=== PATIENT | male | born 1960 | race Caucasian/White ===

== ENCOUNTER 2017-03-03 14:27 | Inpatient (IN) | payer OTHER ==
[~2017-03-03] VITALS: Ht 180.3 cm; Wt 80.0 kg
--- NOTE | ~2017-03-03 | HC ---
[facility] [place] [address] CONSULTATION Name: DEBBIE MINOR Room #: 418-P ADM IN M.R.#: [id number] Admission: 03/03/17 Attend Phys: Lit Romo Discharge: Date of : 64 Report #: [id number] THIS REPORT FOR: //name// CC: [facility] physician/PCP Lit Romo REASON FOR CONSULTATION: I was asked to evaluate the patient concerning syncopal episode and neutropenia. HISTORY OF PRESENT ILLNESS: The patient is a 56-year-old with underlying HIV infection, who has been stable on 3-drug antiretroviral program for over 20 years. He presents after syncopal episode that occurred while he was at the on 03/03/2017. He just walked up a flight of stairs and there were about 6 patients into the lobby when he had syncopal episode where he fell into a wall and was off for several seconds. His partner witnessed the fall. There was no gross seizure activity. He did awaken within the seconds, although he was responsive and was able to verbalize. The patient could not tell me much of what has had other than he was aware of the events that took place. The medical personnel at the facility put him in a wheelchair to come down stairs, offered him some liquid to drink. At that time, the patient was reasonably stable and was transported by private vehicle to the Emergency Room where he was evaluated here and kept in the Med-Surge Unit. He was placed on telemetry and remained in sinus rhythm. Resting electrocardiogram was unremarkable other than mild left atrial enlargement and left axis deviation. He reports a similar episode that occurred about a year ago. He was out of work for about a month because this. He had residual weakness on his right side, but he could not characterize it very well. He was told that he had a TIA. He reports, however, that his MRI scan was negative and no other neurologic workup was undertaken, although he was not definitive about the evaluation. Since a year ago, he had been back to work. 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 He does note that intermittently he will have episodes of presyncope. They last seconds and then resolve one he rests. He does have underlying diabetes with peripheral neuropathy. He has glaucoma. States many years ago, he had treadmill cardiac test which was unremarkable. He had an extensive illness and workup. The patient could not tell me the exact results of back in 2003, 2004 in [facility]. PAST MEDICAL HISTORY: Appendectomy, hemorrhoidectomy, TIA with previous syncopal episodes, anxiety, depression, glaucoma, HIV, hepatitis B, CMV, retinitis, diabetes, peripheral neuropathy, IBS predominately with constipation. ALLERGIES: CHLOR-TRIMETON. MEDICATIONS: As noted on his DEC, which were reviewed. He is on Epzicom and Viracept. He also takes Neurontin and imipramine. [address] [address] CONSULTATION Name: DEBBIE MINOR Room #: 418-P ADM IN M.R.#: [id number] Admission: 03/03/17 Attend Phys: Lit Romo Discharge: Date of : 64 Report #: [id number] FAMILY HISTORY: He is adopted. SOCIAL HISTORY: Has a stable partner, works in [employer] for [employer]. Nonsmoker, no significant alcohol intake, no other reported STDs, tuberculosis. Travel only to [place] outside the [place]. Pet dogs. REVIEW OF SYSTEMS: No nausea, vomiting, diarrhea, dysuria or frequency, rash. He did report feeling malaise, mild arthralgias and myalgias for last 2 days. No documented fever. No pharyngitis symptoms, cough, headache, dysuria or frequency. PHYSICAL EXAMINATION: VITAL SIGNS: Afebrile and hemodynamically stable. GENERAL: He is alert and cooperative and pleasant, in no acute distress. SKIN: Unremarkable. LYMPH: Unremarkable. HEENT: Unremarkable. No adenopathy. NECK: Unremarkable. Carotid upstrokes normal. No bruits. Thyroid normal. LUNGS: Clear. HEART: Regular, without murmur. ABDOMEN: Soft, nontender, no hepatosplenomegaly or mass. GENITORECTAL: Not performed. EXTREMITIES: Unremarkable other than right calf atrophy. Sensation in his feet to touch were normal, pulses normal, stance normal. Romberg -1. Deep tendon reflexes diminished, -1 throughout. Strength otherwise normal other than -2 in toe raisers. LABORATORY STUDIES: Hemoglobin 10.9, platelet count 85,000, white count 1.8, 40% segs, 30% lymphs. 6.5, sodium 137, potassium 4.3, bicarbonate 28, creatinine 1.1. Liver function test normal, AST 42. Lactate 1.1. TSH 2. BNP 54. Chest x-ray clear. Blood culture is negative to date. CT head, mild atrophy. IMPRESSION: A 47-year-old, underlying diabetes, human immunodeficiency virus, now with syncopal episode, this is in junction with evidence of pancytopenia. The cause of his syncopal episode may well have been vagal in the setting of his neuropathy and some dehydration. Other consideration would be cardiac dysrythmia, autonomic neuropathy, cerebrovascular event, most likely seizure or tumor. Cause of his pancytopenia would include drugs side effect versus opportunistic infection versus human immunodeficiency virus, less likely lymphoproliferative disorder. RECOMMENDATION: Continue his home antiretroviral program, obtain viral studies for CMV, EVV, obtain outside records of his previous blood counts and his workup performed in [facility] where he underwent a bone marrow biopsy, check a CD4 [facility] [address] [place] [address] CONSULTATION Name: DEBBIE MINOR Room #: 418-P ADM IN M.R.#: [id number] Admission: 03/03/17 Attend Phys: Lit Romo Discharge: Date of : 64 Report #: [id number] count and Urology evaluate. Continue with telemetry and check echocardiogram. Would hold as Neurontin and imipramine at this time. <ELECTRONICALLY SIGNED> By: Dash Toure MD 03/05/17 0844 1447 0014 Dash Toure MD /nt
--- NOTE | ~2017-03-03 | S ---
[facility] [place] [address] SURGICAL PATH RPT PROCEDURE Name: DEBBIE MINOR Room #: 418-P ADM IN M.R.#: [id number] Admission: 03/03/17 Date of : 64 Discharge: Report #: [id number] Path Case #: [id number] PATHOLOGY REPORT COLLECTION DATE: 03/04/2017 RECEIVED DATE: 03/05/2017 SUBMITTING PHYS: Dr. Dash Toure OTHER PHYS: Dr. Lit Onofre SPECIMEN(S) RECEIVED: A.Peripheral smear * * * * * * * * * * * * FINAL DIAGNOSIS: Peripheral blood smear: - Mild pancytopenia. (see comment) COMMENT: Overall, the peripheral blood has mild pancytopenia including mild normocytic anemia, mild leukopenia, and mild to moderate thrombocytopenia. The etiology of the findings is unclear based entirely on slide review. Potential causes of pancytopenia include infections, drug reactions, and primary bone marrow disorders. No markedly atypical cells are identified on scanning. Correlation with clinical history and additional laboratory data is recommended. PATHOLOGIST: Blossom Wisdom M.D. REPORT ELECTRONICALLY SIGNED BY: Blossom Wisdom M.D. DATE/TIME: 03/05/2017 22:23 * * * * * * * * * * * * MICROSCOPIC DESCRIPTION: CBC Data (03/04/17): WBC 2,500 /uL, RBC 3.83, hemoglobin 11.7 g/dL, hematocrit 35.4%, MCV 95.2 fL, MCH 30.6 pg, MCHC 33.1 g/dL, RDW 13.4%. Platelet count 101,000 /uL. Automated white blood cell differential: segs 68.6%, lymphs 17.4%, monos 11.7%, eos 1.6%, and 0.7% basos. Peripheral Blood Smear: Cytomorphological examination of the Ugalde's stained peripheral blood smear confirms the provided data. Red blood cells show mild normocytic anemia with no significant anisopoikilocytosis. No schistocytes or microspherocytes are seen. No opportunistic organisms are identified on scanning. White blood cells are mildly decreased in number. They are predominantly segmented neutrophils and are without significant dyspoiesis or significant left shift. Lymphocytes are predominantly small, round, and mature appearing with [address] [address] SURGICAL PATH RPT PROCEDURE Name: DEBBIE MINOR Room #: 418-P ADM IN M.R.#: [id number] Admission: 03/03/17 Date of : 64 Discharge: Report #: [id number] Path Case #: [id number] condensed chromatin and scant cytoplasm with admixed large granular lymphocytes. On scanning, no markedly atypical lymphoid cells are seen. Monocytes are mature. Platelets are mildly decreased in number and mainly normal in morphology with rare larger platelets noted. CLINICAL HISTORY: 56 year-old man with pancytopenia. Morphologic review of the peripheral blood smear is requested by the patient's physician. INITIAL CPT CODE(S): A; [place] Professional services performed by [facility] at [facility] [address], [place] [address] Technical services performed by [facility] at [address] [place] [address], [address], [place] [address]. [facility] [address] [place] [address] PHONE: [phone] DIRECTOR: Fili Moses M.D. * * * END OF REPORT * * *
--- NOTE | ~2017-03-03 | 2DMMODE ---
[facility] [address] [place] [address] 2 D/M-MODE ECHOCARDIOGRAM Name: DEBBIE MINOR Room #: 418-P ADM IN M.R.#: [id number] Admission: 03/03/17 Attend Phys: Lit Alvarado Discharge: Date of : 64 Date of Service: 03/05/17 1034 Report #: [id number] THIS REPORT FOR: //name// APPROVED REPORT Study performed: 03/05/2017 08:49:45 EXAM: Comprehensive 2D, Doppler, and color-flow Echocardiogram Patient Location: Echo lab Room #: 418 Blood Pressure: 141/77 mmHg HR: 92 bpm Rhythm: NSR Other Information Study Quality: Adequate Technically limited study due to body habitus, lung artifact. Indications Syncope 2D Dimensions RVDd: 31.21 mm LVEF(%): 58.75 (>50%) IVSd: 9.42 (7-11mm) LVOT Diam: 21.74 (18-24mm) LVDd: 47.89 mm PWd: 8.88 (7-11mm) Ascending Ao: 36.31 (22-36mm) LVDs: 33.00 (25-40mm) Aortic Root: 31.84 mm Lindsey's LVEF: 58.75 % Volumes Left Atrial Volume (Systole) Single Plane 4CH: 37.64 mL Single Plane 2CH: 49.36 mL LA ESV Index: 25.00 mL/m2 Aortic Valve AoV Peak Jacob.: 1.90 m/s AO Peak Gr.: 14.48 mmHg LVOT Max P.95 mmHg LVOT Max V: 1.32 m/s BOBBY Vmax: 2.57 cm2 [facility] [address] [address] 2 D/M-MODE ECHOCARDIOGRAM Name: DEBBIE MINOR Room #: 418-P [facility].#: [id number] Admission: 03/03/17 Attend Phys: Lit Alvarado Discharge: Date of : 64 Date of Service: 03/05/17 1034 Report #: [id number] Mitral Valve E/A Ratio: 0.7 MV Decel. Time: 294.47 ms MV E Max Jacob.: 0.84 m/s MV A Jacob.: 1.15 m/s MV PHT: 85.39 ms IVRT: 62.28 ms Pulmonary Valve PV Peak Jacob.: 0.96 m/s PV Peak Gr.: 3.69 mmHg Tricuspid Valve RAP Estimate: 5.00 mmHg Left Ventricle The left ventricle is normal size. There is normal LV segmental wall motion. There is normal left ventricular wall thickness. Left ventricular systolic function is normal. LVEF is 60%. Grade I - abnormal relaxation pattern. Right Ventricle The right ventricle is normal size. The right ventricular systolic function is normal. Atria The left atrium size is normal. The right atrium size is normal. Aortic Valve Aortic valve is not well visualized but is noted to be calcified. No aortic regurgitation is present. There is no aortic valvular stenosis. Mitral Valve The mitral valve is normal in structure. There is no mitral valve regurgitation noted. No evidence of mitral valve stenosis. Tricuspid Valve The tricuspid valve is normal in structure. There is no tricuspid valve regurgitation noted. Pulmonic Valve Pulmonic valve is not well visualized. Great Vessels The aortic root is normal in size. The ascending aorta is normal in [facility] [address] [place] [address] 2 D/M-MODE ECHOCARDIOGRAM Name: DEBBIE MINOR Room #: 418-P ADM IN M.R.#: [id number] Admission: 03/03/17 Attend Phys: Lit Alvarado Discharge: Date of : 64 Date of Service: 03/05/17 1034 Report #: [id number] size. IVC is normal in size and collapses >50% with inspiration. Pericardium There is no pericardial effusion. <Conclusion> The left ventricle is normal size. LVEF is 60%. Aortic valve is not well visualized but is noted to be calcified. The mitral valve is normal in structure. The tricuspid valve is normal in structure. Pulmonic valve is not well visualized. <ELECTRONICALLY SIGNED> By: Hi Reyes MD 03/05/17 1034 1034 1034 Hi Reyes MD /INF
--- NOTE | ~2017-03-03 | EKG ---
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 : 1960 Requested By: Jeremiah Magallon Order Number: [id number] MD: Ezekiel Hernandez Measurements Intervals [place] Rate: 79 P: 49 [place]: 155 QRS: -18 QRSD: 105 T: 19 QT: 398 QTc: 457 Interpretive Statements Sinus rhythm Probable left atrial enlargement Borderline left axis deviation Compared to ECG 11/19/2014 08:27:33 No significant changes Electronically Signed On 03-03-2017 22:43:09 CDT by Ezekiel Hernandez [email or web address] <ELECTRONICALLY SIGNED> By: Ezekiel Hernandez MD 03/03/17 2243 1440 1440 Ezekiel Hernandez MD /BEATA
--- NOTE | ~2017-03-03 | HC ---
[facility] [place] [place] [address] CONSULTATION Name: DEBBIE MINOR Room #: 418-P ADM IN M.R.#: [id number] Admission: 03/03/17 Attend Phys: Lit Romo Discharge: Date of : 64 Report #: [id number] THIS REPORT FOR: //name// CC: [place] physician/PCP Lit Romo DATE OF SERVICE: 03/04/2017 HISTORY OF PRESENT ILLNESS: The patient is a 56-year-old male who while he was at the [facility] yesterday had a syncopal episode. At the same time, the patient's blood sugar was 60. The patient was instructed to come to the Emergency Room and was admitted for further evaluation. The medic at the event reported that the patient's blood pressure was somewhere in the 90s/60s. The patient was able to stand afterwards and converse with the medics. Since that time, the patient has had headache and tingling of the extremities. The patient does admit to having a peripheral neuropathy secondary to diabetes. He also relates a history of lightheadedness for approximately the past year and feels lightheaded from time to time, sometimes he feels lightheaded when he stands suddenly. The patient has even been to the [facility] just to have all of his medications reviewed. He has had diabetes for approximately 20 years. He is also HIV positive and has diabetic neuropathy. The patient also told me that his legs become restless before he goes to bed at night and that makes it hard for him to fall asleep. PAST MEDICAL HISTORY: Irritable bowel syndrome, HIV, depression, non-insulin dependent diabetes, glaucoma, hepatitis B diabetic neuropathy. PAST SURGICAL HISTORY: Left foot surgery, tonsillectomy. MEDICATIONS: At home, Actoplus Met 15/850 one tablet t.i.d., acidophilus daily, vitamin C 1000 mg daily, B12 3000 mcg daily, imipramine 25 mg t.i.d., Neurontin 600 mg t.i.d., fish oil or flaxseed oil 1000 mg daily, CoQ10 100 mg daily, bupropion XL 300 mg daily, cinnamon/alpha lipoic acid daily, fish oil 1200 mg daily, multivitamin daily, Viracept 1250 mg b.i.d., Epzicom one tablet daily, Xalatan eye drops at bedtime, glucosamine in the morning, melatonin 3 mg at bedtime. ALLERGIES: . PHYSICAL EXAMINATION: VITAL SIGNS: Blood pressure 148/100, pulse rate 113, respiratory rate 18, bedside pulse oximetry 95% on room air. NEUROLOGIC: Cranial nerves 2-12 are grossly intact. Motor exam demonstrates symmetrical strength in all 4 extremities. There is no evidence of dysmetria. [address] [address] CONSULTATION Name: DEBBIE MINOR Room #: 418-P [facility] IN M.R.#: [id number] Admission: 03/03/17 Attend Phys: Lit Romo Discharge: Date of : 64 Report #: [id number] Gait was not tested. LABORATORY DATA: White blood cell count 1.8, hemoglobin 10.9, hematocrit 32.6, MCV 92.6, platelet count 85,000. Urinalysis negative. Chemistry: Sodium 137, potassium 4.3, chloride 100, carbon dioxide 28, BUN 20, creatinine 1.1, GFR 70, glucose 120. Lactic acid 1.1, calcium 8.5, phosphorus 3.8, total bilirubin 0.4, AST 42, ALT 48, alkaline phosphatase 93, total protein 7.2, albumin 3.5. TSH 2.05. IMAGING: CT head demonstrates mild atrophy and microvascular disease. IMPRESSION: This patient has diabetic peripheral neuropathy. He may have orthostatic hypotension. He also has restless legs syndrome. I have asked for orthostatic blood pressures to be done for the restless legs. Ropinirole 0.25 mg will be ordered at bedtime. The patient may need a larger dose, but this will be a good place to start. It should be noted that ropinirole could add to the orthostasis if he were to stand at bedtime, but the effects of the medication should wear off by the time he wakes up in the morning. I thank you for your kind referral of this patient. We will continue to follow him with you. <ELECTRONICALLY SIGNED> By: Karen Onofre DO 03/06/17 [id number] 0359 Karen Onofre DO /nt
[~2017-03-03 14:27] MED LIST: ABACAVIR PO; ACIDOPHILUS1 EAC3 PO; ACTOPLUS MET 11 EAC1 PO; ANDROGEL PUMP TOP; APAP650 PO; ATIVAN0.5 MG PO; AUGMENTIN 500-1 EACH PO; AUGMENTIN 875875 M1 PO; B-121000 MCG PO; BENTYL 20 MG TA20 M1 PO; BUDEPRION XL300 MG; BUPROPION XL300 MG PO; CENTRUM SILVER1 EAC4 PO; CENTRUM TABLET1 TAB; CINNAMON; CINNAMON ALPHA1 EACH PO; COQ-10100 MG PO; CYMBALTA30 MG; CYMBALTA60 MG PO; EPZICOM1 TA1 PO; FISH OIL 1,2001 EAC4 PO; FISHOIL; FLAX OIL1000 MG PO; FLOMAX0.4 MG PO; GLUCOSAMINE CH1 EAC2 PO; IMIPRAMINE HCL25 MG PO; LAMISIL250 MG PO; LORAZEPAM 0.50.5 MG PO; MELATONIN3 MG PO; NEURONTIN600 MG PO; NORCO 5-325 TA1 EACH PO; PIOGLITAZONE/METFORM PO; SENNA; TERBINAFINE TOP; VICODIN 5-5001 EACH PO; VIRACEPT250 MG; VIRACEPT625 MG PO; VIREAD300 MG PO; VITAMIN B-12100 MC1 PO; VITCB500GO PO; XALATAN2.5 M1 OPHTHALMIC; ZIAGEN 300 MG300 MG PO; [UNRECOGNIZED DRUG - REMARK]
[2017-03-03 14:29] VITALS: BP 108/62
[2017-03-03 15:16] LABS: HEMOGLOBIN 10.8 gm/dL (14.0-18.0); RDW 13.7 % (10.5-14.5)
[2017-03-03 15:18] LABS: HEMATOCRIT 32.4 % (42.0-52.0); MCH 31.1 pg (26.0-34.0); MCHC 33.3 g/dL (28.0-37.0); MCV 93.2 fL (80.0-100.0); PLATELET COUNT 95 thou/uL (150-400); RBC 3.47 mil/uL (4.50-6.00)
[2017-03-03 15:21] LABS: MANUAL DIFF YES
[2017-03-03 15:22] LABS: WBC 1.6 thou/uL (4.0-11.0)
[2017-03-03 15:23] LABS: ANION GAP 10 mmol/L (7-16); BUN 28 mg/dL (7-18); CALCIUM 8.7 mg/dL (8.5-10.1); CHLORIDE 99 mmol/L (98-107); CO2 26 mmol/L (21-32); CREATININE 1.4 mg/dL (0.7-1.3); GLUCOSE 160 mg/dL (74-106); POTASSIUM 4.1 mmol/L (3.5-5.1); SODIUM 135 mmol/L (136-145)
[2017-03-03 15:30] LABS: ALBUMIN 3.7 g/dL (3.4-5.0); ALKALINE PHOSPHATASE 93 U/L (46-116); SGOT 42 U/L (15-37); SGPT 48 U/L (30-65); TOTAL BILIRUBIN 0.4 mg/dL (<0.1-1.0); TOTAL PROTEIN 7.2 g/dL (6.4-8.2); TROPONIN-I < 0.04 ng/mL (<0.04-0.07)
[2017-03-03 15:41] LABS: ABSOLUTE NEUTROPHILS 0.6 thou/uL (1.4-8.2); ANISOCYTOSIS 1+; TOTAL CELL COUNT 50
[2017-03-03 15:42] LABS: POLYCHROMASIA OCCASIONAL
[2017-03-03 17:11] VITALS: BP 110/62
[2017-03-03 17:14] LABS: URINE BILIRUBIN NEGATIVE (Negative); URINE BLOOD NEGATIVE (Negative); URINE COLOR YELLOW; URINE GLUCOSE-RANDOM* NEGATIVE (Negative); URINE KETONES NEGATIVE (Negative); URINE LEUKOCYTES-REFLEX NEGATIVE (Negative); URINE PROTEIN (DIPSTICK) NEGATIVE (Negative); URINE SPECIFIC GRAVITY 1.025 (1.003-1.035); URINE UROBILINOGEN 0.2 E.U./dl (0.2-1.0)
[2017-03-03 17:52] VITALS: BP 129/63
[2017-03-03 20:00] VITALS: BP 109/57
[2017-03-04 04:00] VITALS: BP 132/79
[2017-03-04 06:24] LABS: HEMATOCRIT 32.6 % (42.0-52.0); HEMOGLOBIN 10.9 gm/dL (14.0-18.0); MCH 30.9 pg (26.0-34.0); MCHC 33.4 g/dL (28.0-37.0); MCV 92.6 fL (80.0-100.0); RBC 3.52 mil/uL (4.50-6.00); RDW 13.5 % (10.5-14.5)
[2017-03-04 06:55] LABS: ALBUMIN 3.5 g/dL (3.4-5.0); CALCIUM 8.5 mg/dL (8.5-10.1); CREATININE 1.1 mg/dL (0.7-1.3); PHOSPHORUS 3.8 mg/dL (2.5-4.9); POTASSIUM 4.3 mmol/L (3.5-5.1)
[2017-03-04 07:14] LABS: WBC 1.8 thou/uL (4.0-11.0)
[2017-03-04 15:53] VITALS: BP 148/100
[2017-03-04 20:00] VITALS: BP 121/83
[2017-03-05] VITALS (7 sets, daily range): BP systolic 98–141; BP diastolic 51–77
[2017-03-05 09:36] LABS: HEMATOCRIT 34.8 % (42.0-52.0); HEMOGLOBIN 11.5 gm/dL (14.0-18.0); MCH 30.3 pg (26.0-34.0); MCV 91.9 fL (80.0-100.0); RBC 3.79 mil/uL (4.50-6.00); RDW 13.9 % (10.5-14.5); WBC 2.7 thou/uL (4.0-11.0)
[2017-03-05 14:08] LABS: CD3 % 74.3 % (57.5-86.2); CD4 % 38.4 % (30.8-58.5); CD4:CD8 1.22 (0.92-3.72); CD8 % 31.5 % (12.0-35.5)
[2017-03-06 04:00] VITALS: BP 127/84
[2017-03-06 06:29] LABS: HEMATOCRIT 32.7 % (42.0-52.0); MCH 31.1 pg (26.0-34.0); MCHC 33.8 g/dL (28.0-37.0); RBC 3.55 mil/uL (4.50-6.00); RDW 13.5 % (10.5-14.5)
[2017-03-06 06:35] LABS: WBC 1.7 thou/uL (4.0-11.0)
[2017-03-06 07:32] VITALS: BP 149/85
[2017-03-06] MEDS ORDERED: NEURONTIN 300300 M1 PO (10:06)
[2017-03-06] MEDS ORDERED: IMIPRAMINE HCL25 MG PO (10:07)
[2017-03-06 10:58] VITALS: BP 149/85
[2017-03-06 16:08] LABS: PARVOVIRUS IGG 1.8 index (0.0-0.8); PARVOVIRUS IGM 0.3 index (0.0-0.8)
[2017-03-07 16:12] LABS: CMV DNA Negative (Negative)
[2017-03-07 16:12] LABS: EBV QUANT Negative (Negative)
== END 2017-03-06 12:03 | disposition home or self-care (01) | DRG 312 ==
LOC: ER 14:27 → EROBS 16:29 → 4E 16:29
PROVIDERS: Hospitalist; Physician Assistant; Specialist
DX: I95.1 Orthostatic hypotension (principal); B20 Human immunodeficiency virus [HIV] disease; D61.818 Other pancytopenia; N17.9 Acute kidney failure, unspecified; H40.9 Unspecified glaucoma; E86.0 Dehydration; E11.42 Type 2 diabetes mellitus with diabetic polyneuropathy; K59.00 Constipation, unspecified; G25.81 Restless legs syndrome; K58.9 Irritable bowel syndrome, unspecified; F41.9 Anxiety disorder, unspecified; F32.9 Major depressive disorder, single episode, unspecified; Z86.19 Personal history of other infectious and parasitic diseases; Z88.8 Allergy status to other drugs, medicaments and biological substances; Z90.49 Acquired absence of other specified parts of digestive tract; Z86.73 Personal history of transient ischemic attack (TIA), and cerebral infarction without residual deficits; Z79.899 Other long term (current) drug therapy; Z21 Asymptomatic human immunodeficiency virus [HIV] infection status
CPT/HCPCS: 10183

== ENCOUNTER 2017-03-17 09:32 | Emergency (ER) | payer OTHER ==
[~2017-03-17] VITALS: Ht 180.3 cm; Wt 79.4 kg
[~2017-03-17 09:32] MED LIST changes: +NEURONTIN 300300 M1 PO
[2017-03-17] MEDS ORDERED: SENOKOT-S1 TA1 PO (10:52)
[2017-03-17] MEDS ORDERED: PERCOCET 5-3251 EACH PO (10:59)
== END 2017-03-17 11:04 | disposition home or self-care (01) ==
LOC: ER 09:32
DX: M54.41 Lumbago with sciatica, right side (principal); M25.551 Pain in right hip; K58.9 Irritable bowel syndrome, unspecified; F41.9 Anxiety disorder, unspecified; F32.9 Major depressive disorder, single episode, unspecified; E11.9 Type 2 diabetes mellitus without complications; Z21 Asymptomatic human immunodeficiency virus [HIV] infection status; Z86.73 Personal history of transient ischemic attack (TIA), and cerebral infarction without residual deficits; Z90.89 Acquired absence of other organs; Z88.8 Allergy status to other drugs, medicaments and biological substances

== ENCOUNTER 2018-09-28 14:16 | Emergency (ER) | payer OTHER ==
[~2018-09-28] VITALS: Ht 180.3 cm; Wt 79.4 kg
[~2018-09-28 14:16] MED LIST changes: +DILTIAZEM 24HR180 M3 PO; +ENTECAVIR1 MG PO; +FLECAINIDE ACET50 M1 PO; +MIDODRINE HCL 55 M1 PO; +PERCOCET 5-3251 EACH PO; +REQUIP 0.25 M0.25 MG PO; +SENOKOT-S1 TA1 PO; +XARELTO20 MG PO
[2018-09-28] MEDS ORDERED: NORFLEX100 MG PO (14:57)
[2018-09-28] MEDS ORDERED: MEDROLDOSEPACK PO (14:57)
[2018-09-28 15:43] VITALS: BP 99/65
== END 2018-09-28 15:45 | disposition home or self-care (01) ==
LOC: ER 14:16
DX: M54.42 Lumbago with sciatica, left side (principal); F41.9 Anxiety disorder, unspecified; F32.9 Major depressive disorder, single episode, unspecified; E11.9 Type 2 diabetes mellitus without complications; K58.9 Irritable bowel syndrome, unspecified; Z21 Asymptomatic human immunodeficiency virus [HIV] infection status; Z88.8 Allergy status to other drugs, medicaments and biological substances; Z90.49 Acquired absence of other specified parts of digestive tract; Z86.73 Personal history of transient ischemic attack (TIA), and cerebral infarction without residual deficits

== ENCOUNTER 2019-12-24 00:01 | Inpatient (IN) | payer OTHER ==
[~2019-12-24] VITALS: Ht 180.3 cm; Wt 66.2 kg
[2019-12-24] VITALS (8 sets, daily range): BP systolic 113–145; BP diastolic 82–99
[~2019-12-24 00:01] MED LIST changes: +MEDROLDOSEPACK PO; +NORFLEX100 MG PO
[2019-12-24] MEDS ORDERED: [UNRECOGNIZED DRUG - OTHER] PO (00:28)
[2019-12-24] MEDS ORDERED: VITAMIN D32000 UNI2 PO (00:30)
[2019-12-24] MEDS ORDERED: COENZYME Q10200 M2 PO (00:31)
[2019-12-24] MEDS ORDERED: PRADAXA150 MG PO (00:32)
[2019-12-24] MEDS ORDERED: DULCOLAX STOOL100 M1 PO (00:33)
[2019-12-24] MEDS ORDERED: DULOXETINE PO (00:34)
[2019-12-24] MEDS ORDERED: FERROUS SULFATE PO (00:36)
[2019-12-24] MEDS ORDERED: GLUCOSAMINE &1 EACH PO (00:37)
[2019-12-24] MEDS ORDERED: MELATONIN1 MG/1 ML PO (00:39)
[2019-12-24] MEDS ORDERED: OXYCONTIN PO (00:40)
[2019-12-24] MEDS ORDERED: OXYCODONE HCL10 MG PO (00:41)
[2019-12-24] MEDS ORDERED: PRAVACHOL40 MG PO (00:42)
[2019-12-24] MEDS ORDERED: POTASSIUM20 PO (00:42)
[2019-12-24] MEDS ORDERED: PNV 29-1 TABLE1 EACH PO (00:43)
[2019-12-24] MEDS ORDERED: PRANDIN2 MG PO (00:44)
[2019-12-24] MEDS ORDERED: SODIUM BICARBO650 M3 PO (00:54)
[2019-12-24] MEDS ORDERED: FORTEO750 MCG/3 (00:56)
[2019-12-24 01:11] LABS: ABSOLUTE NEUTROPHILS 10.5 thou/uL (1.4-8.2); BASOPHILS 0.1 % (0.0-2.0); EOSINOPHILS 0.1 % (0.0-3.0); HEMATOCRIT 45.1 % (42.0-52.0); HEMOGLOBIN 14.9 gm/dL (14.0-18.0); LYMPHOCYTES 3.1 % (24.0-44.0); MCH 34.9 pg (26.0-34.0); MCHC 33.1 g/dL (28.0-37.0); MCV 105.4 fL (80.0-100.0); MONOCYTES 6.8 % (1.0-8.0); PLATELET COUNT 190 thou/uL (150-400); POLYS 89.9 % (36.0-66.0); RBC 4.28 mil/uL (4.50-6.00); RDW 14.6 % (10.5-14.5); WBC 11.7 thou/uL (4.0-11.0)
[2019-12-24 01:16] LABS: URINE BILIRUBIN NEGATIVE (Negative); URINE BLOOD 3+ (Negative); URINE CLARITY CLOUDY; URINE COLOR YELLOW; URINE GLUCOSE-RANDOM* 3+ (Negative); URINE KETONES 2+ (Negative); URINE NITRITE-REFLEX NEGATIVE (Negative); URINE PROTEIN (DIPSTICK) 2+ (Negative); URINE UROBILINOGEN 0.2 E.U./dl (0.2-1.0)
[2019-12-24 01:28] LABS: ALBUMIN 3.6 g/dL (3.4-5.0); CALCIUM 9.4 mg/dL (8.5-10.1); CREATININE 2.3 mg/dL (0.7-1.3); TOTAL BILIRUBIN 0.6 mg/dL (<0.1-1.0); TOTAL PROTEIN 8.1 g/dL (6.4-8.2)
[2019-12-24 01:36] LABS: POTASSIUM 2.4 mmol/L (3.5-5.1)
[2019-12-24 01:36] LABS: URINE LEUKOCYTES-REFLEX 2+ (Negative)
[2019-12-24 01:47] LABS: SQUAMOUS 0-3 Few /LPF (0-3); URINE WBC-REFLEX >25 Many /HPF (0-5); WBC CLUMPS Packed (None Seen)
[2019-12-24 01:48] LABS: BACTERIA-REFLEX 1-9 Few /HPF (None Seen); CASTS None Seen /LPF (None Seen); CRYSTALS None Seen /LPF (None Seen); MUCUS 0-3 Light strn/LPF (None Seen); URINE RBC >20 Many /HPF (0-2)
[2019-12-24] MEDS ORDERED: TESTOSTERONE TOP (01:48)
[2019-12-24] MEDS ORDERED: VALTREX 500 MG500 MG PO (01:49)
[2019-12-24] MEDS ORDERED: FORTEO750 MCG/3 SUBQ (12:16)
--- NOTE | 2019-12-24 14:52 | NUR ---
ASSUMED CARE AT 1100, SHIFT ASSESSMENT DONE, MEDS GIVEN, VSS. ADMISSION DONE, SINUS TACH ON THE MONITOR, ROOM AIR. HAD A SMALL HARD BM TODAY. REPORTED ABDOMINAL PAIN, PRN PAIN MED GIVEN WITH SOME RELIEF. WILL CONTINUE TO ASSESS AND ASSIST WITH ADLs NEEDED.
--- NOTE | 2019-12-24 21:09 | NUR ---
PT RESTING IN BED WATCHING TV, TALKING WITH VISITORS. IVF INTACT. ABD DISTENDED, HYPOACTIVE BS. PT REPORTS HOPES OF HAVING BM AFTER TAKING SCHEDULED MEDS. NO C/O PAIN. CL LIQ DIET. BRIGHT AFFECT, GOOD EYE CONTACT. WEAK AND SHAKY WITH TRANSFERS, SBA. WALKER.
--- NOTE | 2019-12-24 23:35 | NUR ---
PT CALLED NURSE REPORTING RESTLESS LEGS, FEELING LIKE HE SHOULD GET UP BUT KNOWS HE SHOULD STAY IN BED, REPORTS FEELING LIKE A PANIC ATTACK. PROVIDER CALLED AND ORDERS TO BE OBTAINED.
[2019-12-25 03:22] LABS: HEMATOCRIT 38.8 % (42.0-52.0); MCH 35.2 pg (26.0-34.0); MCHC 33.3 g/dL (28.0-37.0); MCV 105.6 fL (80.0-100.0); RBC 3.67 mil/uL (4.50-6.00); RDW 14.4 % (10.5-14.5); WBC 6.5 thou/uL (4.0-11.0)
[2019-12-25 03:37] LABS: CALCIUM 8.4 mg/dL (8.5-10.1); CREATININE 2.1 mg/dL (0.7-1.3)
[2019-12-25 03:43] LABS: POTASSIUM 2.3 mmol/L (3.5-5.1)
[2019-12-25 03:44] LABS: HEMOGLOBIN 12.9 gm/dL (14.0-18.0)
[2019-12-25 03:46] VITALS: BP 140/86
[2019-12-25 07:44] VITALS: BP 142/97
[2019-12-25 11:36] VITALS: BP 149/100
[2019-12-25 15:13] VITALS: BP 137/91
--- NOTE | 2019-12-25 15:39 | NUR ---
Assumed care approx. 0700 this AM. Pt had a large, soft BM. Once incontinent & another to the bedside commode. Sinus tachycardia on the monitor (low 100's). Maintenance fluids infusing per orders. No complaints at this time. Pt hopeful for discharge tomorrow. Pts partner/DPOA at bedside to visit this afternoon. Will continue to monitor. Pt progressing toward plan of care goals.
--- NOTE | 2019-12-25 16:31 | NUR ---
INITIAL ASSESSMENT: Received consult. SW reviewed chart and spoke with nursing and attending physician. Pt was admitted from home due to UTI. Pt with low potassium today. Discharge home is anticipated for tomorrow. SW met with pt and s/o at bedside. Introduced role of SW. Pt is alert/orientated x 4. Pt reports that they live at home. 1 step to enter. No steps inside. Pt has a walker to assist with ambulation. Pt has used a w/c in the past. Pt has a personal service representative that does therapy with him in their home. [facility]. Pt's PCP is Dr. Martha Mcclendon. Pt will have transportation home. No discharge needs identified. SW is available to assist should needs arise.
[2019-12-25 20:18] VITALS: BP 150/96
--- NOTE | 2019-12-25 21:04 | NUR ---
PT RESTING IN BED TALKING WITH VISITOR. SMILING, GOOD EYE CONTACT. IVF INTACT. PT REPORTED SEVERAL BMS TODAY WITH ONE DIARRHEA EPISODE. PT DISCUSSED NOT LIKING THE SIZE OF THE POTASSIUM PILLS AND HAVING TO MENTALLY PREPARE TO SWALLOW THEM. ABD REMAINS DISTENDED, BS+. PT CALLS FOR ASSISTANCE WITH TRANSFERS. PT REPORTS WANTING TO DC IN AM. NO C/O PAIN.
--- NOTE | 2019-12-25 23:35 | NUR ---
PT REQEUSTED PRN FOR ANXIETY AND NEUROPATHY PAIN IN FEET AND PROVIDED.
[2019-12-26 04:42] VITALS: BP 150/95
[2019-12-26 07:23] VITALS: BP 131/80
[2019-12-26] MEDS ORDERED: RELISTOR150 MG PO (09:21)
[2019-12-26 10:24] LABS: CALCIUM 8.5 mg/dL (8.5-10.1); CREATININE 1.8 mg/dL (0.7-1.3); POTASSIUM 3.4 mmol/L (3.5-5.1)
[2019-12-26 11:19] VITALS: BP 141/85
[2019-12-26 13:41] VITALS: BP 141/85
--- NOTE | 2019-12-26 14:07 | NUR ---
Assumed pt care at 7am.[facility] in [facility] bed with sba in the room.Assessment completed.vss.Pt tolerated meds and diet.Dr Romo here,ddc order noted.Dc summary compile and reviewed with pt.Saline lock dc'd.Pt will be dc home before shift change.Apple juice given around 1400 per pt request.Will continue to monitor.
[2019-12-26 15:37] VITALS: BP 138/87
== END 2019-12-26 15:47 | disposition home or self-care (01) | DRG 389 ==
LOC: ER 00:01 → 3W 03:07 → EROBS 03:07 → 3W 10:56
PROVIDERS: Emergency Medicine Emergency Medical Services; Nurse Practitioner Family; ADMIT Hospitalist
DX: K56.7 Ileus, unspecified (principal); N39.0 Urinary tract infection, site not specified; N17.9 Acute kidney failure, unspecified; F11.20 Opioid dependence, uncomplicated; B19.10 Unspecified viral hepatitis B without hepatic coma; K59.03 Drug induced constipation; K58.1 Irritable bowel syndrome with constipation; K59.09 Other constipation; F32.9 Major depressive disorder, single episode, unspecified; F41.9 Anxiety disorder, unspecified; E87.6 Hypokalemia; N18.3 Chronic kidney disease, stage 3 (moderate); E11.22 Type 2 diabetes mellitus with diabetic chronic kidney disease; Z79.4 Long term (current) use of insulin; Z90.49 Acquired absence of other specified parts of digestive tract; Z86.73 Personal history of transient ischemic attack (TIA), and cerebral infarction without residual deficits; Z88.8 Allergy status to other drugs, medicaments and biological substances; Z79.899 Other long term (current) drug therapy
CPT/HCPCS: 10879

== ENCOUNTER 2020-04-12 16:44 | Emergency (ER) | payer OTHER ==
[~2020-04-12] VITALS: Ht 180.3 cm; Wt 68.0 kg
[~2020-04-12 16:44] MED LIST changes: +COENZYME Q10200 M2 PO; +DULCOLAX STOOL100 M1 PO; +DULOXETINE PO; +FERROUS SULFATE PO; +FORTEO750 MCG/3; +FORTEO750 MCG/3 SUBQ; +GLUCOSAMINE &1 EACH PO; +MELATONIN1 MG/1 ML PO; +OXYCODONE HCL10 MG PO; +OXYCONTIN PO; +PNV 29-1 TABLE1 EACH PO; +POTASSIUM20 PO; +PRADAXA150 MG PO; +PRANDIN2 MG PO; +PRAVACHOL40 MG PO; +RELISTOR150 MG PO; +SODIUM BICARBO650 M3 PO; +TESTOSTERONE TOP; +VALTREX 500 MG500 MG PO; +VITAMIN D32000 UNI2 PO; +[UNRECOGNIZED DRUG - OTHER] PO
[2020-04-12 17:40] LABS: ABSOLUTE NEUTROPHILS 3.1 thou/uL (1.4-8.2); BASOPHILS 0.2 % (0.0-2.0); EOSINOPHILS 1.3 % (0.0-3.0); HEMOGLOBIN 9.9 gm/dL (14.0-18.0); LYMPHOCYTES 9.4 % (24.0-44.0); MCH 37.6 pg (26.0-34.0); MCHC 34.2 g/dL (28.0-37.0); MONOCYTES 10.9 % (1.0-8.0); PLATELET COUNT 114 thou/uL (150-400); POLYS 78.2 % (36.0-66.0); RBC 2.64 mil/uL (4.50-6.00); RDW 14.8 % (10.5-14.5)
[2020-04-12 17:51] LABS: ANION GAP 10 mmol/L (7-16); BUN 30 mg/dL (7-18); CALCIUM 8.1 mg/dL (8.5-10.1); CHLORIDE 105 mmol/L (98-107); CO2 21 mmol/L (21-32); CREATININE 1.9 mg/dL (0.7-1.3); GLUCOSE 121 mg/dL (74-106); POTASSIUM 3.9 mmol/L (3.5-5.1); SODIUM 136 mmol/L (136-145)
[2020-04-12 18:00] LABS: APTT 64.6 Seconds (24.5-32.8); INR 1.4; PROTIME 14.7 Seconds (9.3-11.4)
[2020-04-12 18:02] LABS: ALBUMIN 3.2 g/dL (3.4-5.0); MAGNESIUM 1.9 mg/dL (1.8-2.4); SGOT 22 U/L (15-37); SGPT 20 U/L (30-65); TOTAL BILIRUBIN 0.5 mg/dL (0.2-1.0); TOTAL PROTEIN 6.9 g/dL (6.4-8.2); TROPONIN-I <0.06 ng/mL (<0.06)
[2020-04-12] MEDS ORDERED: ACTOS 45 MG45 M1 PO (18:54)
[2020-04-12] MEDS ORDERED: NORCO 5-325 TA1 EAC1 PO (20:20)
[2020-04-12 20:24] VITALS: BP 101/63
--- NOTE | 2020-04-13 07:33 | EKG ---
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 [employer]: : 1960 Requested By: Kerry Winter Order Number: [id number] MD: Aaron Gifford Measurements Intervals [place] Rate: 88 P: 39 ID: [id number] QRS: -35 QRSD: 147 T: 34 QT: 398 QTc: 482 Interpretive Statements Sinus rhythm Prolonged ID interval Nonspecific intraventricular conduction delay Poor R wave progression Low voltage No previous ECGs available for comparison Electronically Signed On 04-13-2020 7:32:20 CDT by Aaron Gifford [email or web address] <ELECTRONICALLY SIGNED> By: Aaron Gifford MD, [facility] 04/13/20 0732 170 170 Aaron Gifford MD, [facility] /EPI
== END 2020-04-12 20:25 | disposition home or self-care (01) ==
LOC: ER 16:44
PROVIDERS: Physician Assistant
DX: R06.09 Other forms of dyspnea (principal); R53.1 Weakness; E11.8 Type 2 diabetes mellitus with unspecified complications; N18.3 Chronic kidney disease, stage 3 (moderate); Z90.49 Acquired absence of other specified parts of digestive tract; Z79.899 Other long term (current) drug therapy; Z87.891 Personal history of nicotine dependence; Z88.8 Allergy status to other drugs, medicaments and biological substances